=== PATIENT | female | born 1985 | race Caucasian/White ===

== ENCOUNTER 2016-11-16 10:34 | Inpatient (IN) | payer OTHER ==
[2016-11-16] MEDS ORDERED: LIDOCAINE 1% 300 MG/30 ML SDV ONE (11:02)
[2016-11-16] MEDS ORDERED: OXYTOCIN 10 UNIT/ML VIAL ONE (11:03)
[2016-11-16] MEDS ORDERED: MISOPROSTOL 200 MCG TAB ONE (11:03)
[2016-11-16] MEDS ORDERED: OLIVE OIL 118 ML BTL ONE (11:03)
[2016-11-16] MEDS ORDERED: AMMONIA AROMATIC 1 EACH AMP IH ONE (11:03)
--- NOTE | 2016-11-16 11:03 | OBPROG ---
Labor Progress Note Assessment/Plan: Assessment:cat 1 fhr pain well managed vs wnl gbs negative contractions q5 per patient moderate to firm on palpation bbow exam /-1 cephalic Plan:expectant management 11/16/16 11:02 Subjective/Intrapartum Course: 11/16/16 11:00 Coping well through the pain. Feeling a great deal of back labor. Discussed ways to assist with the pain. Changing positions, tub etc... - SVE Dilation (cm): 4 Effacement (%): 90 Station: -1 Membranes: Intact - Contraction Pattern Assessment Current Contraction Pattern: Regular - Physical Exam General Appearance: WD/WN, alert, no apparent distress Respiratory: chest non-tender, lungs clear, normal breath sounds Cardiac/Chest: regular rate, rhythm Abdomen: normal bowel sounds Extremities: normal range of motion, Diane's sign (negative bilaterally) DTR- Lower Extremities: Knee (R): 1+, Knee (L): 1+ Skin: normal color, warm/dry Neuro/Psych: no motor/sensory deficits, alert, normal mood/affect, oriented x 3 ICD10 Worksheet Patient Problems: Problems Problem Status Onset term labor Acute
[2016-11-16] MEDS ORDERED: TERBUTALINE SULFATE 1 MG/ML VIAL IV PRN (11:36)
[2016-11-16] MEDS ORDERED: LR 1,000 ML IV PRN (11:36)
[2016-11-16] MEDS ORDERED: OLIVE OIL 118 ML BTL MISC PRN (11:36)
[2016-11-16] MEDS ORDERED: EPSOM SALT 454 GM TP PRN (11:36)
[2016-11-16] MEDS ORDERED: OXYTOCIN/RINGERS LACTATE 1,000 ML IV PRN (11:36)
--- NOTE | 2016-11-16 11:41 | GHP ---
[f rep st] HISTORY AND PHYSICAL DATE OF ADMISSION: 11/16/2016 HISTORY OF PRESENT ILLNESS: The patient is a 30-year-old, 1, para 0, with an EDC of 11/16/19 17, which gives her a gestational age of 40 and 1/7 weeks, who comes in with complaint of regular lab or since 8 a.m. on 11/16/2016. Positive bloody show. Denies leaking of fluid. States feeling posit elvia movement. The patient has been routinely seen with [facility] since early in the , 9 weeks and 2 days. First trimester ultrasound that verified dates. MEDICAL HISTORY: Positive HSV 1, nongenital. SURGICAL HISTORY: Neely teeth. Broken ankle. OTHER HISTORY: Patient is a vegetarian. PERSONAL HISTORY: The patient has a history of LGA on ultrasound less than 4500 g. Estima lisa weight is 8 pounds. A 2-vessel cord. Growth has been sufficient. SOCIAL HISTORY: Patient is . No tobacco use. No alcohol. Denies illegal medication use. D enies [id number] narcotic use. GYNECOLOGICAL HISTORY: Benign. REVIEW OF SYSTEMS: Noncontributory. PHYSICAL ASSESSMENT: GENERAL: Patient is awake, alert, oriented x3. LUNGS: Clear bilaterally. AB DOMEN: Bowel sounds are positive in all 4 quadrants. EXTREMITIES: DTRs are 1+ bilaterally. Homans sign is negative bilaterally. LABS: Patient is A positive, antibody negative. RPR is nonreactive. Rubella is immune. Hepatitis is negative. Trio screen was negative. Pap, gonorrhea and chlamydia as well as urine culture were n egative. AFP was negative. Verifi was negative. 1-hour GTT was within normal limits. GBS is negat elvia. ALLERGIES: NKDA. MEDICATIONS: Valtrex 1 g p.o. q. day, vitamins with DHEA. PLAN: 1. Expectant management of labor. 2. GBS is negative. 3. Consult with physician as needed for plan of care. /[id number]/MODL
[2016-11-16] MEDS ORDERED: OXYTOCIN 20 UNIT in LR 1,000 ML IV SCH (12:00)
[2016-11-16 12:24] LABS: % IMMATURE GRANULYOCYTES 0.5 % (0.0-1.1); ABSOLUTE IMMATURE GRANULOCYTES 0.11 10^3/uL (0.00-0.10); ADD DIFF? NO; ADD MORPH? NO; ADD SCAN? NO; ATYPICAL LYMPHOCYTE FLAG 0 (0-99); FRAGMENT RBC FLAG 0 (0-99); HEMATOCRIT 38.4 % (38.0-47.0); HEMOGLOBIN 13.5 g/dL (12.6-16.3); LEFT SHIFT FLG 0 (0-99); LIPEMIA HEMOLYSIS FLAG 90 (0-99); MEAN CELL HEMOGLOBIN 31.6 pg (27.9-34.1); MEAN CELL HEMOGLOBIN CONCENTR. 35.2 g/dL (32.4-36.7); MEAN CELL VOLUME 89.9 fL (81.5-99.8); MEAN PLATELET VOLUME 9.1 fL (8.7-11.7); PLATELET CLUMPS FLAG 0 (0-99); PLATELET COUNT 347 10^3/uL (150-400); RED BLOOD CELL COUNT 4.27 10^6/uL (4.18-5.33); RED CELL DISTRIBUTION WIDTH 13.9 % (11.5-15.2)
[2016-11-16] MEDS ORDERED: OXYTOCIN 20 UNIT in LR 1,000 ML IV PRN (12:30)
[2016-11-16] MEDS ORDERED: valACYclovir 500 MG TAB PO ONE (13:00)
[2016-11-16] MEDS ORDERED: VALTREX 1000 MG PO ONE ×2 (13:45→18:00)
--- NOTE | 2016-11-16 14:00 | OBPROG ---
Labor Progress Note Assessment/Plan: Assessment:intermittant doppler fhr wnl no audible variables pain well managed vs wnl gbs negative contractions q3-5 bbow exam 6-7/100/-1 cephalic Plan:expectant management 11/16/16 11:02 11/16/16 13:59 Subjective/Intrapartum Course: 11/16/16 11:00 Coping well through the pain. Feeling a great deal of back labor. Discussed ways to assist with the pain. Changing positions, tub etc... 11/16/16 13:57 doing well. coping well with the contractions. Objective: 11/16/16 12:10 Patient ABO/Rh A POSITIVE 11/16/16 12:10 - SVE Dilation (cm): 6, 7 Station: -1 Membranes: Intact - Contraction Pattern Assessment Current Contraction Pattern: Regular Oxytocin Orders Assessment - Pre-Induction/Augmentation Assessment Gestational Age: 40 week(s) and 1 day(s) ICD10 Worksheet Patient Problems: Problems Problem Status Onset term labor Acute
--- NOTE | 2016-11-16 16:45 | OBPROG ---
Labor Progress Note Assessment/Plan: Assessment:intermittant doppler fhr wnl no audible variables pain well managed in and out of tub changing frequent positions vs wnl gbs negative contractions q3-5 bbow exam 7100/-1 cephalic Plan:offered arom if desired declined for now 11/16/16 11:02 11/16/16 13:59 11/16/16 16:44 Subjective/Intrapartum Course: 11/16/16 11:00 Coping well through the pain. Feeling a great deal of back labor. Discussed ways to assist with the pain. Changing positions, tub etc... 11/16/16 13:57 doing well. coping well with the contractions. Objective: 11/16/16 12:10 Patient ABO/Rh A POSITIVE 11/16/16 12:10 - SVE Dilation (cm): 7 Effacement (%): 100 Station: -1 Membranes: Intact - Contraction Pattern Assessment Current Contraction Pattern: Regular Oxytocin Orders Assessment - Pre-Induction/Augmentation Assessment Gestational Age: 40 week(s) and 1 day(s) ICD10 Worksheet Patient Problems: Problems Problem Status Onset term labor Acute
--- NOTE | 2016-11-16 19:05 | OBPROG ---
Labor Progress Note Assessment/Plan: Assessment:NST after arom then return to intermittant monitoring pain well managed in and out of tub changing frequent positions vs wnl gbs negative contractions q3-4 arom clear fluid exam 8/100/-1 cephalic Plan:arom clear fluid at patients request 11/16/16 11:02 11/16/16 13:59 11/16/16 16:44 11/16/16 19:03 Subjective/Intrapartum Course: 11/16/16 11:00 Coping well through the pain. Feeling a great deal of back labor. Discussed ways to assist with the pain. Changing positions, tub etc... 11/16/16 13:57 doing well. coping well with the contractions. 11/16/16 19:05 doing well with the contractions. Changing positions frequently. Objective: 11/16/16 12:10 Patient ABO/Rh A POSITIVE 11/16/16 12:10 - SVE Dilation (cm): 8 Effacement (%): 100 Station: -1 Membranes: AROM, Intact Amniotic Fluid Color: Clear - Contraction Pattern Assessment Current Contraction Pattern: Regular Oxytocin Orders Assessment - Pre-Induction/Augmentation Assessment Gestational Age: 40 week(s) and 1 day(s) ICD10 Worksheet Patient Problems: Problems Problem Status Onset term labor Acute
--- NOTE | 2016-11-16 20:52 | OBPROG ---
Labor Progress Note Assessment/Plan: Assessment: continuous monitoring pain well managed back in bed to squatting position changing frequent positions vs wnl gbs negative contractions q3-4 arom clear fluid exam 100/0-+1 cephalic Plan:expectant management of labor 11/16/16 11:02 11/16/16 13:59 11/16/16 16:44 11/16/16 19:03 11/16/16 20:47 Subjective/Intrapartum Course: spontaneous labor arom clear fluid slow but continuous progress forward 11/16/16 11:00 Coping well through the pain. Feeling a great deal of back labor. Discussed ways to assist with the pain. Changing positions, tub etc... 11/16/16 13:57 doing well. coping well with the contractions. 11/16/16 19:05 doing well with the contractions. Changing positions frequently. 11/16/16 20:46 Having greater difficulties getting through the contractions. Feeling greater pressure 11/16/16 20:52 Objective: 11/16/16 12:10 Patient ABO/Rh A POSITIVE 11/16/16 12:10 - SVE Dilation (cm): 9 Effacement (%): 90 Station: +1 Membranes: AROM Amniotic Fluid Color: Clear - Contraction Pattern Assessment Current Contraction Pattern: Regular Oxytocin Orders Assessment - Pre-Induction/Augmentation Assessment Gestational Age: 40 week(s) and 1 day(s) ICD10 Worksheet Patient Problems: Problems Problem Status Onset term labor Acute
[2016-11-16] MEDS ORDERED: fentaNYL 2MCG/ML/BUP 0.1% RTU 100 ML BAG EP ONE (21:51)
[2016-11-16] MEDS ORDERED: BUPIVACAINE 0.25% 30 ML SDV ONE (21:51)
[2016-11-16] MEDS ORDERED: PHENYLEPHRINE HCL 100 MCG/ML SYR ONE (21:51)
[2016-11-16] MEDS ORDERED: fentaNYL 100 MCG/2 ML INJ ONE (21:52)
--- NOTE | 2016-11-16 22:41 | OBPROG ---
Labor Progress Note Assessment/Plan: Assessment: continuous monitoring epidural for pain relief vs wnl gbs negative contractions q3-4 clear fluid continues exam 10/100/+1cephalic iupc placed inadequete contractions pitocin per protocol Plan:expectant management of labor 11/16/16 11:02 11/16/16 13:59 11/16/16 16:44 11/16/16 19:03 11/16/16 20:47 11/16/16 22:40 Subjective/Intrapartum Course: spontaneous labor arom clear fluid slow but continuous progress forward 11/16/16 11:00 Coping well through the pain. Feeling a great deal of back labor. Discussed ways to assist with the pain. Changing positions, tub etc... 11/16/16 13:57 doing well. coping well with the contractions. 11/16/16 19:05 doing well with the contractions. Changing positions frequently. 11/16/16 20:46 Having greater difficulties getting through the contractions. Feeling greater pressure 11/16/16 20:52 11/16/16 22:41 Comfortable after epidural doing better. More comfortable Objective: 11/16/16 12:10 Patient ABO/Rh A POSITIVE 11/16/16 12:10 - SVE Dilation (cm): 10 Effacement (%): 100 Station: +1 Membranes: AROM Amniotic Fluid Color: Clear - Contraction Pattern Assessment Current Contraction Pattern: Regular Oxytocin Orders Assessment - Pre-Induction/Augmentation Assessment Gestational Age: 40 week(s) and 1 day(s) ICD10 Worksheet Patient Problems: Problems Problem Status Onset term labor Acute
[2016-11-16] MEDS ORDERED: PHENYLEPHRINE HCL 100 MCG/ML SYR IVP PRN (22:42)
[2016-11-16] MEDS ORDERED: ONDANSETRON 4 MG/2 ML VIAL IVP PRN (22:42)
--- NOTE | 2016-11-16 22:42 | POSTANESTH ---
Post Anesthetic Evaluation Cardiovascular Status: Normal, Stable, Similar to Pre-Op Cond Respiratory Status: Normal, Stable, Similar to Pre-op Cond. Level of Consciousness/Mental Status: Can Participate in Eval, Alert and Oriented Pain Control: Adequate, Prn Tx Ordered Nausea/Vomiting Control: Adequate, Prn Tx Ordered Complications Possibly Related to Anesthesia: None Noted
--- NOTE | 2016-11-16 22:42 | PREANESOB ---
Obstetric Pre-Anesthesia Info - General Info Proposed Procedure: Labor and delivery. : 1 Para: 0 WBD: 40 - Info Status: Full Term Monitors: External FHR Baseline (bpm): 130 FHR Pattern: Reassuring - Labor Status Cervical Dilation per last OB SVE: 9 Station per last OB SVE: +1 Rupture of Membranes Time: 18:23 Indications for Labor Analgesia: Pain Control Labor Epidural: Proposed Anesthesia ROS: Prior oral surgery. Allergies/Adverse Reactions: Allergy/AdvReac Type Severity Reaction Status Date / Time No Known Allergies Allergy Unverified 11/16/16 11:36 Visit Medications: Generic Name Dose Route Start Last Admin Trade Name Freq PRN Reason Stop Dose Admin Lactated Ringer's 1,000 mls @ 0 mls/hr 11/16/16 11:36 Lr IV 05/15/17 11:35 PRN PRN SEE PROTOCOL CONDITIONS Protocol Per Protocol Oxytocin 20 unit/ Lactated 1,002 mls @ 150 mls/hr 11/16/16 12:30 Ringer's IV PRN PRN POST- BLEEDING Ibuprofen 600 mg 11/16/16 11:36 Motrin PO 05/15/17 11:35 Q6HRS PRN post , inflammation Magnesium Sulfate 454 gm 11/16/16 11:36 Epsom Salt TP 05/15/17 11:35 Q1H PRN perineal discomfort Miscellaneous Medication 1 ea 11/17/16 09:00 Non-Formulary PO 05/16/17 08:59 DAILY ANUJ Soso Oil 118 ml 11/16/16 11:36 Sweet Oil MISC 05/15/17 11:35 ONCE PRN perineal massage Terbutaline Sulfate 0.25 mg 11/16/16 11:36 Brethine IV 05/15/17 11:35 ONCE PRN Tachysystole Discontinued Medications Generic Name Dose Route Start Last Admin Trade Name Freq PRN Reason Stop Dose Admin Ammonia (Aromatic Spirit) Confirm 11/16/16 11:03 Ammonia Aromatic Administered 11/16/16 11:04 Dose 1 each IH .STK-MED ONE Bupivacaine HCl Confirm 11/16/16 21:51 Sensorcaine 0.25% Sdv Administered 11/16/16 21:52 Dose 30 ml .ROUTE .STK-MED ONE Fentanyl Confirm 11/16/16 21:52 Sublimaze Administered 11/16/16 21:53 Dose 100 mcg .ROUTE .STK-MED ONE Fentanyl/Bupivacaine HCl Confirm 11/16/16 21:51 Fentanyl/Bupivacaine/Ns 2 Mcg/Ml 0.1% (Premix Administered 11/16/16 21:52 Dose 100 ml EP .STK-MED ONE Oxytocin/Lactated Ringer's 1,000 mls @ 150 mls/hr 11/16/16 11:36 Pitocin 20 Units/Lr (Premix) IV PRN PRN Post- bleeding Oxytocin 20 unit/ Lactated 1,002 mls @ 150 mls/hr 11/16/16 12:00 11/16/16 20: 47 Ringer's IV 11/16/16 18:41 Not Given CONT ANUJ Lidocaine HCl Confirm 11/16/16 11:02 Lidocaine Hcl 1% Administered 11/16/16 11:03 Dose 300 mg .ROUTE .STK-MED ONE Miscellaneous Medication 1 ea 11/16/16 18:00 Non-Formulary PO 11/16/16 18:01 ONCE ONE Miscellaneous Medication 1 ea 11/16/16 13:45 11/16/16 20:43 Non-Formulary PO 11/16/16 13:46 Not Given ONCE ONE Misoprostol Confirm 11/16/16 11:03 Cytotec Administered 11/16/16 11:04 Dose 1,000 mcg .ROUTE .STK-MED ONE Soso Oil Confirm 11/16/16 11:03 Sweet Oil Administered 11/16/16 11:04 Dose 118 ml .ROUTE .STK-MED ONE Oxytocin Confirm 11/16/16 11:03 Pitocin Administered 11/16/16 11:04 Dose 20 unit .ROUTE .STK-MED ONE Phenylephrine HCl Confirm 11/16/16 21:51 Neosynephrine Administered 11/16/16 21:52 Dose 1,000 mcg .ROUTE .STK-MED ONE Valacyclovir HCl 1,000 mg 11/16/16 13:00 11/16/16 20:47 Valtrex PO 11/16/16 13:01 Not Given ONCE ONE - Anesthesia History Response to Local Anesthetics: Normal Anesthesia & Operative History: No Prior Problems Family Anesthesia History: Negative - Social History Substance Use/Abuse: Denies - Focused Exam Blood Pressure: 128/82 Heart Rate: 78 Respiratory Rate: 15 Height/Weight (Nursing): Height 160.02 cm Weight 78.018 kg Physical Exam: Within normal limits. ASA Status: II Labs: 11/16/16 12:10 Patient ABO/Rh A POSITIVE 11/16/16 12:10 - Plan Anesthetic Plan: MELISSA Consent Signed and on Chart: Yes Patient/Guardian Understands and Agrees to Plan: Yes Urgent/Emergent Case: Anes eval completed preop but documented later for safe timely pt care (Written consent signed after epidural.)
[2016-11-16] MEDS ORDERED: LR 500 ML IV SCH (23:00)
[2016-11-16] MEDS ORDERED: OXYTOCIN 30 UNIT in LR 500 ML IV SCH (23:00)
[2016-11-16] MEDS ORDERED: fentaNYL 2MCG/ML/BUP 0.1% RTU 100 ML EP SCH (23:00)
--- NOTE | 2016-11-17 01:43 | OBPROG ---
Labor Progress Note Assessment/Plan: Assessment: Plan: Subjective/Intrapartum Course: spontaneous labor arom clear fluid slow but continuous progress forward 11/16/16 11:00 Coping well through the pain. Feeling a great deal of back labor. Discussed ways to assist with the pain. Changing positions, tub etc... 11/16/16 13:57 doing well. coping well with the contractions. 11/16/16 19:05 doing well with the contractions. Changing positions frequently. 11/16/16 20:46 Having greater difficulties getting through the contractions. Feeling greater pressure 11/16/16 20:52 11/16/16 22:41 Comfortable after epidural doing better. More comfortable 11/17/16 01:44 patient is complete and pushing. was having a difficult time tracing baby with pushing so fecg was placed. continues to have spontaneous accelerations and decels with pushing. pushing with alternating contractions. per pako short who is pushing with the patient the head is moving with contractions. will continue close observations. discussed possible PLTCS if status becomes non reassuring. Objective: 11/16/16 12:10 Patient ABO/Rh A POSITIVE 11/16/16 12:10 Temp Pulse Resp BP Pulse Ox 78 15 128/82 H 11/16/16 22:42 11/16/16 22:42 11/16/16 22:42 - SVE Dilation (cm): 10 Effacement (%): 100 Station: +2 Membranes: AROM Amniotic Fluid Color: Clear - Contraction Pattern Assessment Current Contraction Pattern: Regular - FHR Assessment [place] FHR Pattern Variability: Moderate FHR Category: 2 Oxytocin Orders Assessment - Pre-Induction/Augmentation Assessment Gestational Age: 40 week(s) and 1 day(s) ICD10 Worksheet Patient Problems: Problems Problem Status Onset term labor Acute
--- NOTE | 2016-11-17 02:18 | OBPROG ---
Labor Progress Note Assessment/Plan: Assessment: Plan: Subjective/Intrapartum Course: spontaneous labor arom clear fluid slow but continuous progress forward 11/16/16 11:00 Coping well through the pain. Feeling a great deal of back labor. Discussed ways to assist with the pain. Changing positions, tub etc... 11/16/16 13:57 doing well. coping well with the contractions. 11/16/16 19:05 doing well with the contractions. Changing positions frequently. 11/16/16 20:46 Having greater difficulties getting through the contractions. Feeling greater pressure 11/16/16 20:52 11/16/16 22:41 Comfortable after epidural doing better. More comfortable 11/17/16 01:44 patient is complete and pushing. was having a difficult time tracing baby with pushing so fecg was placed. continues to have spontaneous accelerations and decels with pushing. pushing with alternating contractions. per pako short who is pushing with the patient the head is moving with contractions. will continue close observations. discussed possible PLTCS if status becomes non reassuring. 11/17/16 02:15 i have been in the room pushing with patient and pako. patient giving good maternal effort. FHTs between contractions are reassuring. having decelerations to the 70's with return to baseline after 2-3 minutes with increasing frequency. I checked the patient myself and feel that the head is at 0 station and too high for an operative assist vaginal delivery. discussed options. will proceed with PLTCS. consent obtained. OR being opened. anesthesia aware and will bolus. Objective: 11/16/16 12:10 Patient ABO/Rh A POSITIVE 11/16/16 12:10 Temp Pulse Resp BP Pulse Ox 78 15 128/82 H 11/16/16 22:42 11/16/16 22:42 11/16/16 22:42 - SVE Dilation (cm): 10 Effacement (%): 100 Station: 0 Membranes: AROM Amniotic Fluid Color: Clear - Contraction Pattern Assessment Current Contraction Pattern: Regular - FHR Assessment [place] FHR Pattern Variability: Moderate FHR Category: 2 Oxytocin Orders Assessment - Pre-Induction/Augmentation Assessment Gestational Age: 40 week(s) and 1 day(s) ICD10 Worksheet Patient Problems: Problems Problem Status Onset term labor Acute
[2016-11-17] MEDS ORDERED: LIDO/EPI 2% **for epidural** 20 ML SDV ONE (02:19)
[2016-11-17] MEDS ORDERED: fentaNYL 100 MCG/2 ML INJ ONE (02:20)
[2016-11-17] MEDS ORDERED: LR 500 ML IV ONE (02:24)
[2016-11-17] MEDS ORDERED: ceFAZolin 2 GM/DEXTROSE 100 ML IV ONE (02:24)
[2016-11-17] MEDS ORDERED: LR 1,000 ML IV SCH (02:30)
[2016-11-17] MEDS ORDERED: METHYLERGONOVINE MAL 0.2 MG/ML INJ ONE (03:00)
[2016-11-17] MEDS ORDERED: MEPERIDINE 25 MG/ML SYR ONE (03:22)
[2016-11-17] MEDS ORDERED: BISACODYL 10 MG SUPP PR PRN (03:37)
[2016-11-17] MEDS ORDERED: PROMETHAZINE HCL 25 MG/ML INJ IVP PRN (03:37)
[2016-11-17] MEDS ORDERED: DOCUSATE SODIUM 100 MG CAP PO PRN (03:37)
[2016-11-17] MEDS ORDERED: LACTULOSE 20 GM/30 ML UDCUP PO PRN (03:37)
[2016-11-17] MEDS ORDERED: MAGNESIUM HYDROXIDE 30 ML UDCUP PO PRN (03:37)
[2016-11-17] MEDS ORDERED: POLYETHYLENE GLYCOL 3350 17 GM PKT PO PRN (03:37)
[2016-11-17] MEDS ORDERED: SIMETHICONE 80 MG TAB CHEW PO PRN (03:37)
--- NOTE | 2016-11-17 03:43 | OBDEL ---
Info Type: Primary Presentation at Delivery: Vertex L&D Analgesia/Anesthesia Type: None Intrapartum Medications: Generic Name Dose Route Start Last Admin Trade Name Freq PRN Reason Stop Dose Admin Lactated Ringer's 1,000 mls @ 0 mls/hr 11/16/16 11:36 11/16/16 23:37 Lr IV 05/15/17 11:35 1,000 mls PRN PRN Administration SEE PROTOCOL CONDITIONS Protocol Per Protocol Oxytocin 30 unit/ Lactated 503 mls @ 0 mls/hr 11/16/16 23:00 11/16/16 23:36 Ringer's IV 05/15/17 22:59 503 mls CONT ANUJ Administration Protocol Per Protocol Discontinued Medications Generic Name Dose Route Start Last Admin Trade Name Freq PRN Reason Stop Dose Admin Oxytocin 20 unit/ Lactated 1,002 mls @ 150 mls/hr 11/16/16 12:00 11/16/16 20: 47 Ringer's IV 11/16/16 18:41 Not Given CONT ANUJ Miscellaneous Medication 1 ea 11/16/16 18:00 11/16/16 23:18 Non-Formulary PO 11/16/16 18:01 Not Given ONCE ONE Miscellaneous Medication 1 ea 11/16/16 13:45 11/16/16 20:43 Non-Formulary PO 11/16/16 13:46 Not Given ONCE ONE Valacyclovir HCl 1,000 mg 11/16/16 13:00 11/16/16 20:47 Valtrex PO 11/16/16 13:01 Not Given ONCE ONE - Hospital Course Intrapartum: spontaneous labor arom clear fluid slow but continuous progress forward 11/16/16 11:00 Coping well through the pain. Feeling a great deal of back labor. Discussed ways to assist with the pain. Changing positions, tub etc... 11/16/16 13:57 doing well. coping well with the contractions. 11/16/16 19:05 doing well with the contractions. Changing positions frequently. 11/16/16 20:46 Having greater difficulties getting through the contractions. Feeling greater pressure 11/16/16 20:52 11/16/16 22:41 Comfortable after epidural doing better. More comfortable 11/17/16 01:44 patient is complete and pushing. was having a difficult time tracing baby with pushing so fecg was placed. continues to have spontaneous accelerations and decels with pushing. pushing with alternating contractions. per pako short who is pushing with the patient the head is moving with contractions. will continue close observations. discussed possible PLTCS if status becomes non reassuring. 11/17/16 02:15 i have been in the room pushing with patient and pako. patient giving good maternal effort. FHTs between contractions are reassuring. having decelerations to the 70's with return to baseline after 2-3 minutes with increasing frequency. I checked the patient myself and feel that the head is at 0 station and too high for an operative assist vaginal delivery. discussed options. will proceed with PLTCS. consent obtained. OR being opened. anesthesia aware and will bolus. Indications for Delivery: Spontaneous Labor Vaginal Delivery - Labor and Delivery Onset of Contractions Date: 11/16/16 Onset of Contractions Time: 08:00 Rupture of Membranes Date: 11/16/16 Rupture of Membranes Time: 18:23 Amniotic Fluid Color: Clear Operative Report - Delivery Pre-op Diagnoses: iup 40 2/7 weeks, arrest of descent, intolerance of labor Post-op Diagnoses: same plus occiput posterior, post atony History of Prior Section: No Nulliparous Prior to Delivery: No Indications for Current Section: Arrest of Descent, Other (Specify) ( intolerance of labor) Procedure: Unscheduled, Low Transverse Surgeon: Edna Olivas Tying Machine Operator: Pebbles Carvajal Anesthesiologist: Jesse Rosen Complications: Other (Specify) (extention of incision into cervix, post atony) EBL: [address] [place] Delivery Date: 11/17/16 Delivery Time: 02:55 HALIMA: 11/15/16 Gestational Age: 40 week(s) and 2 day(s) Sex of : Female Score (1 Min): 8 Score (5 Min): 9 ICD10 Worksheet Patient Problems: Problems Problem Status Onset delivery delivered Acute term labor Acute
[2016-11-17] MEDS ORDERED: ONDANSETRON 4 MG/2 ML VIAL IVP PRN (04:03)
[2016-11-17] MEDS ORDERED: NALOXONE HCL 0.4 MG/ML INJ IVP PRN (04:03)
[2016-11-17] MEDS ORDERED: PHENYLEPHRINE HCL 100 MCG/ML SYR IVP PRN (04:03)
[2016-11-17] MEDS ORDERED: SCOPOLAMINE HYDROBROMIDE 1 MG/3 DAYS PATCH TD ONE ×3 (04:05→10:09)
--- NOTE | 2016-11-17 04:08 | POSTANESTH ---
Post Anesthetic Evaluation Cardiovascular Status: Normal, Stable, Similar to Pre-Op Cond (Epidural dosed for C Section, to OR, BP treated, comfortable for surgery, to PACU, no pain or nausea.) Respiratory Status: Normal, Stable, Similar to Pre-op Cond. Level of Consciousness/Mental Status: Can Participate in Eval, Mildly Sleepy, Arousable Pain Control: Adequate, Prn Tx Ordered Nausea/Vomiting Control: Adequate, Prn Tx Ordered Complications Possibly Related to Anesthesia: None Noted
[2016-11-17] MEDS: KETOROLAC 30 MG/1 ML SDV IVP SCH ×4 (04:24→22:50)
--- NOTE | 2016-11-17 07:41 | GOP ---
[f rep st] OPERATIVE REPORT DATE OF OPERATION: 11/17/2016 SURGEON: Edna Olivas DO FILLING AND PACKING SUPERVISOR: Pebbles Carvajal CNM. ANESTHESIA: Epidural. ANESTHESIOLOGIST: Jesse Rosen MD PREOPERATIVE DIAGNOSIS: 1. Intrauterine at 40-2/7 weeks gestation. 2. Two-vessel cord. 3. intolerance of labor. 4. Arrest of descent. POSTOPERATIVE DIAGNOSIS: 1. Intrauterine at 40-2/7 weeks gestation. 2. Two-vessel cord. 3. intolerance of labor. 4. Arrest of descent. 5. Occiput posterior. 6. Cervical laceration. 7. atony. PROCEDURE PERFORMED: FINDINGS: 1. Viable female infant in the occiput posterior cephalic presentation, wedged well in the pelvis, d elivered at 2:55 a.m. 's were 8 and 9. 2. Intact placenta with 2-vessel cord. 3. Normal ovaries, uterus, and tubes. 4. Extension of laceration into the cervix. ESTIMATED BLOOD LOSS: 800 cc. INDICATIONS: The patient is a 30-year-old 1, para 0, who is 40-2/7 weeks gestation. She was seen yesterday in the office, and her membranes were stripped. She then presented into active labor in the morning. The patient made progress throughout the day and progressed to 8 cm, and did not ma ke progress past 8 cm, so her membranes were artificially ruptured and, ultimately, Pitocin was start ed. status remained reassuring throughout the labor. However, just before beginning to comple te, there was starting to be decreased variability and some decelerations. Variability did return, a nd patient began pushing. The patient was pushing, but there was not much descent of the head. There started to be severe decelerations with a slower return to baseline with each contraction. T he patient had been laboring with Hermelinda Carvajal. I checked the patient, and the 's head was stil l at the 0 station, and she was not a candidate for vacuum-assisted vaginal delivery. Management opt ions were reviewed. Because of a nonreassuring status remote from delivery, a decision was mad e to proceed with a primary low transverse section. Risks and benefits with the procedure w ere reviewed with the patient, and the patient was properly consented. DESCRIPTION OF PROCEDURE: The patient was taken to the operating room with intravenous fluids in dwayne ce. She had Garrido catheter placed. Venodynes were placed on her lower extremities, and her epidural was already in place. It was then rebolused. She was then placed on the operating room table in do rsal supine position. She was given 2 g of Ancef intravenously. She was then prepped and draped in normal sterile fashion. Anesthesia was assessed and found to be adequate. A Pfannenstiel skin incis ion was then made 2 fingerbreadths above the pubic symphysis. The incision was then carried through the underlying layer of fascia with the Bovie. The fascia was then nicked in the midline. The fasci al incision was extended laterally. The superior aspect of the fascial incision was then grasped wit h Librado's, tented up, and the underlying rectus muscle dissected off bluntly with the Bovie. The re ctus muscle was then . Attention was then turned to the inferior aspect of the fascial inci sharan which, in a similar fashion, was grasped with Librado's, tented up, and the underlying rectus mus isis dissected off. The rectus muscle was then in the midline. The peritoneum was then ed ntified, tented up, and entered sharply with the Metzenbaum scissors. The incision was extended supe riorly and inferiorly, with excellent visualization of the bladder. The bladder blade was then inser lisa. The vesicouterine peritoneum was identified, tented up, and entered sharply with the Metzenbaum scissors. The incision was extended laterally. The bladder flap was created digitally. The bladde r blade was then reinserted. The uterus was then incised in the low transverse fashion with the scal pel. The uterine incision was digitally extended laterally. The infant's hand delivered through the incision and was replaced within the uterus. The 's head was noted to be wedged low within th e pelvis and was elevated without difficulty. The baby was noted to be in occiput posterior presenta tion. The remainder of the baby was delivered without difficulty. Delayed cord clamping x1 minute w as done. Then the cord was clamped x2 and cut. Cord blood was obtained, and the infant was handed o ff to a waiting nurse practitioner. The placenta was then delivered. The uterus was then e xteriorized and cleared of all clots and debris, and the bladder blade was then reinserted. The exte nsion of the cervical laceration was noted, and an 0 Vicryl suture was used to close the laceration. Atony was initially noted, so she was given 0.2 mg of methargen intramuscularly. An 0 Vicryl stitch was used to repair the hysterotomy, and a second 0 Vicryl stitch was used to imbricate the uterine i ncision. Hemostasis was assured. Ovaries, uterus, and tubes were unremarkable. The uterus was then returned to the patient's abdomen. The gutters were cleared of all clots and debris. The hysteroto my remained hemostatic, and the cervical branch extension also remained hemostatic. Peritoneum was r eapproximated with 3-0 Vicryl in a running fashion. Rectus muscle was reapproximated with 3-0 Vicryl in a running fashion. Fascia was closed with 0 Vicryl in a running fashion. Nelsy's fascia was re approximated with 2-0 Vicryl in a running fashion. The subcuticular tissue was reapproximated with 3 -0 Vicryl in a running fashion, and Steri-Strips were then applied. Sponge, lap, and needle count co rrect x2. The patient was transported to recovery room in stable condition. /[id number]/MODL
[2016-11-17] MEDS: SENNOSIDES/DOCUSATE SODIUM TAB PO SCH ×2 (10:20→23:13)
[2016-11-17] MEDS: VALTREX 1000 MG PO SCH (16:23)
[2016-11-18] MEDS ORDERED: PATCH REMOVAL 1 EA PATCH TD ONE (04:06)
[2016-11-18] MEDS: IBUPROFEN 600 MG TAB PO PRN ×3 (04:14→17:20)
--- NOTE | 2016-11-18 09:34 | OBPP ---
Progress Note Assessment/Plan: Assessment: 1) s/p PCS secondary to intol to labor and arrest of descent POD # 1.5 - pt is stable 2) Anemia - pt is asymptomatic Plan: Continue routine pp care Will start iron Encourage ambulation Plan for d/c in 24-48 hrs 11/18/16 09:36 Subjective/ Course: Pt seen and examined. Doing well, she is tired. Having some pain in lower abdomen this morning-only taking Motrin. Pt is OOB, yoel reg diet, voiding and passing flatus. No BM. Denies any f/c/n/v/CP or SOB. BF without difficulty. Objective: 11/18/16 05:55 Patient ABO/Rh A POSITIVE 11/16/16 12:10 Temp Pulse Resp BP Pulse Ox 36.4 C 60 16 93/43 L 94 11/18/16 04:00 11/18/16 04:00 11/18/16 04:00 11/18/16 04:00 11/18/16 04:00 Uterine Position/Fundal Height: Umbilicus -2 Uterine Tone: Firm Physical Exam - Physical Exam Respiratory: lungs clear, normal breath sounds Cardiac/Chest: regular rate, rhythm Abdomen: normal bowel sounds, non-tender, soft, flatus (+), incision (C/D/I with steri strips) Extremities: non-tender, normal inspection Skin: normal color, warm/dry Neuro/Psych: alert, normal mood/affect, oriented x 3
[2016-11-18] MEDS: SENNOSIDES/DOCUSATE SODIUM TAB PO SCH ×2 (09:49→20:37)
[2016-11-18] MEDS: VALTREX 1000 MG PO SCH (09:52)
[2016-11-18] MEDS: HYDROCODONE/APAP 5/325 TAB PO PRN (20:37)
[2016-11-18 21:32] VITALS: RESP 16
[2016-11-19] MEDS: IBUPROFEN 600 MG TAB PO PRN ×4 (00:24→19:25)
[2016-11-19] MEDS: HYDROCODONE/APAP 5/325 TAB PO PRN ×3 (01:39→22:49)
[2016-11-19] MEDS: SENNOSIDES/DOCUSATE SODIUM TAB PO SCH ×2 (08:26→19:26)
[2016-11-19] MEDS: IRON POLYSAC/IRON HEME 28 MG TAB PO SCH ×2 (08:26→19:25)
[2016-11-19] MEDS: VALTREX 1000 MG PO SCH (11:59)
--- NOTE | 2016-11-19 12:09 | OBPP ---
Progress Note Assessment/Plan: Assessment: pod# 2 s/p PLTCS for intolerance of labor and arrest of descent anemia breast feeding Plan: routine post and post operative care iron increase activity 11/19/16 12:08 Subjective/ Course: Pt seen and examined. Doing well, she is tired. Having some pain in lower abdomen this morning-only taking Motrin. Pt is OOB, yoel reg diet, voiding and passing flatus. No BM. Denies any f/c/n/v/CP or SOB. BF without difficulty. Objective: 11/18/16 05:55 Patient ABO/Rh A POSITIVE 11/16/16 12:10 Temp Pulse Resp BP Pulse Ox 36.1 C 63 16 105/61 97 11/19/16 08:00 11/19/16 08:00 11/18/16 20:30 11/19/16 08:00 11/19/16 08:00 Uterine Position/Fundal Height: Umbilicus -2 Physical Exam - Physical Exam Neck: non-tender, full range of motion Respiratory: chest non-tender, lungs clear, normal breath sounds Cardiac/Chest: normal peripheral pulses, regular rate, rhythm Abdomen: normal bowel sounds, non-tender Skin: normal color, warm/dry, other (incision clean dry and intact) Neuro/Psych: no motor/sensory deficits, alert, normal mood/affect, oriented x 3
[2016-11-19] MEDS ORDERED: FLU VACC QS 2017-18 (3YR+)/PF 0.5 ML SYR (FLUARIX QUAD) IM ONE (16:29)
[2016-11-19 19:49] VITALS: O2SAT 96
[2016-11-20] MEDS: IBUPROFEN 600 MG TAB PO PRN ×2 (01:39→09:03)
[2016-11-20] MEDS: HYDROCODONE/APAP 5/325 TAB PO PRN ×2 (05:06→12:50)
--- NOTE | 2016-11-20 08:23 | OBPP ---
Progress Note Assessment/Plan: Assessment: well nipples sore, tender, intact pain well managed ff@u scant rubra lochia incision well approximated ambulating without difficulty passing gas voiding without difficulty anemia vs wnl Plan:discharge to home with instructions. rest, pain management, pelvic rest, iron, , bleeding patterns, ss of infection, fu 2 weeks 4 weeks and 6 weeks. verbalized understanding of all of the above 11/16/16 11:02 11/16/16 13:59 11/16/16 16:44 11/16/16 19:03 11/16/16 20:47 11/16/16 22:40 11/20/16 08:19 Subjective/ Course: Pt seen and examined. Doing well, she is tired. Having some pain in lower abdomen this morning-only taking Motrin. Pt is OOB, yoel reg diet, voiding and passing flatus. No BM. Denies any f/c/n/v/CP or SOB. BF without difficulty. Objective: 11/18/16 05:55 Patient ABO/Rh A POSITIVE 11/16/16 12:10 Temp Pulse Resp BP Pulse Ox 36.3 C 59 L 16 126/67 H 96 11/19/16 19:20 11/19/16 19:20 11/19/16 19:20 11/19/16 19:20 11/19/16 19:20 Uterine Position/Fundal Height: At Umbilicus Uterine Tone: Firm Physical Exam - Physical Exam General Appearance: WD/WN, alert, no apparent distress Respiratory: chest non-tender, lungs clear, normal breath sounds Cardiac/Chest: regular rate, rhythm Abdomen: normal bowel sounds, incision (approximated no ss of infection) Extremities: normal range of motion, Diane's sign (negative bilaterally) DTR- Lower Extremities: Knee (R): 1+, Knee (L): 1+ (no clonus) Skin: normal color, warm/dry Neuro/Psych: no motor/sensory deficits, alert, normal mood/affect, oriented x 3
--- NOTE | 2016-11-20 09:02 | OBGCSDC ---
General Delivery Information - General Info : 1 Para: 1 Abortions: 0 Type: Primary L&D Analgesia/Anesthesia Type: None Admission Date: 11/16/16 Labs: Patient ABO/Rh A POSITIVE 11/16/16 12:10 Hct 27.8 % (38.0-47.0) L D 11/18/16 05:55 - Hospital Course Intrapartum: spontaneous labor arom clear fluid slow but continuous progress forward 11/16/16 11:00 Coping well through the pain. Feeling a great deal of back labor. Discussed ways to assist with the pain. Changing positions, tub etc... 11/16/16 13:57 doing well. coping well with the contractions. 11/16/16 19:05 doing well with the contractions. Changing positions frequently. 11/16/16 20:46 Having greater difficulties getting through the contractions. Feeling greater pressure 11/16/16 20:52 11/16/16 22:41 Comfortable after epidural doing better. More comfortable 11/17/16 01:44 patient is complete and pushing. was having a difficult time tracing baby with pushing so fecg was placed. continues to have spontaneous accelerations and decels with pushing. pushing with alternating contractions. per pako short who is pushing with the patient the head is moving with contractions. will continue close observations. discussed possible PLTCS if status becomes non reassuring. 11/17/16 02:15 i have been in the room pushing with patient and pako. patient giving good maternal effort. FHTs between contractions are reassuring. having decelerations to the 70's with return to baseline after 2-3 minutes with increasing frequency. I checked the patient myself and feel that the head is at 0 station and too high for an operative assist vaginal delivery. discussed options. will proceed with PLTCS. consent obtained. OR being opened. anesthesia aware and will bolus. : Pt seen and examined. Doing well, she is tired. Having some pain in lower abdomen this morning-only taking Motrin. Pt is OOB, yoel reg diet, voiding and passing flatus. No BM. Denies any f/c/n/v/CP or SOB. BF without difficulty. Vaginal - Diagnosis Amniotic Fluid Color: Clear - Delivery Providers Surgeon: Edna Olivas Grain Manager: Pebbles Carvajal Anesthesiologist: Jesse Rosen - Delivery Indications for Current Section: Arrest of Descent, Other (Specify) ( intolerance of labor) Surgical Procedures: Unscheduled, Low Transverse Intra-op Complications: Other (Specify) (extention of incision into cervix, post atony) EBL: [address] [place] Delivery Date: 11/17/16 Delivery Time: 02:55 HALIMA: 11/15/16 Gestational Age: 40 week(s) and 5 day(s) Sex of Infant: Female Campbell Weight (gm): 3336 g Score (1 Min): 8 Score (5 Min): 9 Discharge Information - Discharge Information Prescriptions: Hydrocodone/APAP 5/325 [[place] 5/325 (*)] 1 - 2 tab PO Q4HRS PRN #30 tab PRN Reason: Pain, Moderate Ibuprofen [Motrin (*)] 600 mg PO Q6HRS PRN #30 tab PRN Reason: post , inflammation Iron Polysacch/Iron Heme Polyp [Bifera] 28 mg PO BID #90 tab Condition: Good
[2016-11-20] MEDS: SENNOSIDES/DOCUSATE SODIUM TAB PO SCH (09:04)
[2016-11-20] MEDS: IRON POLYSAC/IRON HEME 28 MG TAB PO SCH (09:04)
[2016-11-20 09:24] VITALS: BP 119/73; PULSE 73; TEMP 97.8
[2016-11-20] MEDS: VALTREX 1000 MG PO SCH (11:29)
== END 2016-11-20 13:40 | disposition home or self-care (01) | DRG 765 ==
LOC: FLD 10:34 → OBSVTOIN 10:34 → FLD 11-17 04:10 → FOB 11-17 05:31
PROVIDERS: ADMIT Advanced Practice Midwife; ATTEND Advanced Practice Midwife
PROC: 10D00Z1 Extraction of Products of Conception, Low, Open Approach (ICD-10-PCS; principal; 2016-11-17)
DX: O62.1 Secondary uterine inertia (principal); O71.3 Obstetric laceration of cervix; O76 Abnormality in fetal heart rate and rhythm complicating labor and delivery; Z37.0 Single live birth; O32.8XX0 Maternal care for other malpresentation of fetus, not applicable or unspecified; Z3A.40 40 weeks gestation of pregnancy
CPT/HCPCS: G0008; J0690; J1200; J1885; J2210; J2370; J2405; J2550; J3010

== ENCOUNTER → 2016-12-27 | Outpatient (CLI) | payer OTHER | LOC: FLAB 11:54 | PROVIDERS: ATTEND Obstetrics & Gynecology | DX: Z39.1 Encounter for care and examination of lactating mother (principal) | CPT/HCPCS: G0463 ==